=== PATIENT | female | born 1955 | race Caucasian/White ===

== ENCOUNTER → 2017-11-23 08:51 | Outpatient (CLI) | payer OTHER, SELFPAY ==
--- NOTE | 2017-11-23 08:53 | RAD_ITS ---
STUDY: X-RAY - LEFT KNEE REASON FOR EXAM: Female, 62 years old. Pain, decreased range of motion TECHNIQUE: 4 view(s) of the knee. COMPARISON: None. FINDINGS: Normal visualized distal femur. Normal visualized proximal tibia and fibula. Normal proximal tibiofibular articulation. There is moderate degenerative arthrosis of the medial femorotibial compartment with moderate joint space narrowing. Normal lateral femorotibial compartment. There is moderate degenerative arthrosis of the patellofemoral articulation. The soft tissue structures are unremarkable. RAD/Knee 4 or More Views IMPRESSION: Degenerative arthrosis. Electronically Signed: Gamal Madrigal MD at 11:25 EDT , Service support ,
== END ==
PROVIDERS: Family Provider Internal Medicine; PCP Internal Medicine; Visit Provider Physician Assistant
DX: M25.562 Pain in left knee (principal)
CPT/HCPCS: 73564

== ENCOUNTER 2017-12-11 16:00 | Outpatient (RCR) | payer OTHER, SELFPAY ==
--- NOTE | 2017-11-23 10:59 | HP.PTEVAL_ITS ---
Patient's Visit Information LAURA RENE is a 62 year old F referred to Physical Therapy by DESTINY Szymanski with a diagnosis of L knee OA. Date of Evaluation: 11/23/17 Physical Therapist: Avel Argueta PT, - Visit Plan Frequency: 2-3x /Week Duration: 3 Weeks Plan: B LE strengthening, core stab ex's, balance and proprio, bike, and HEP - Subjective Subjective: Pt reports she has had L knee pain for approximately 2 mos. Pt reports the pain has progressively worsened. Pt reports last work, her L knee gave out on her while whe was descending stairs. Pt reports her R knee is sore as well. Pt reports walking fast causes her more pain. Pt notes she just received a cortizone injection a few minutes ago, but no benefit at this time. Pt reports most of her pain is in the posterior aspect of her L knee. Pt reports she has tingling down her L LE from the knee to the mid juan region. No sleep difficulty secondary to pain. Pt had recent xrays which revealed OA. Pt reports she has to negotiate stairs one at a time, and has to hold on to the railings. - Pain L knee oa Pain Intensity (Out of 10): 1 Pain Intensity Range: 6 - Objective Neuro: B LE sensation is WNL to light touch. B achilles reflex= 1/3. Girth at joint line: R knee 39 cm, L knee 41 cm. ROM: R knee 0-120, L knee 0-112. MMT: B knee flex= 4-/5, L knee ext= 3+/5, R knee ext= 5/5. Special testing: Positive apley compression test. all other tests negative - Goals Goal 1:: Decrease L knee pain x 50% to aid with IADL's Goal Time Frame: 2-4 Weeks Goal 2:: Increase L knee strength x 1 grade to aid with stair negotiation Goal Time Frame: 2-4 Weeks Goal 3:: Pt will be able to negotiate a full flight of stairs (10 steps) reciprocally holding onto one hand rail to aid with community mobility Goal Time Frame: 2-4 Weeks Goal 4:: I with HEP Goal Time Frame: 2-4 Weeks - Rehabilitation Potential Physical Therapy Diagnosis: L knee pain, weakness, and limited ROM secondary to degenerative changes in the L knee Rehabilitation Potential: Good - Anticipated Interventions Patient/Client Instruction: Educate patient on: Condition, Plan of Care For the Purpose of:: To improve self management Therapeutic Exercise to Include: Strength training, Endurance training, Balance training, Flexibilty training, Gait and locomotor training, Active ROM, Dynamic Lumbar Stabilization For the Purpose of:: To decrease pain, To increase ROM, To improve muscle performance and motor function Cryotherapy (ice pack, ice massage): Yes For the Purpose of:: To decrease pain Thank you for the opportunity to evaluate your patient. For Medicare and Medicare HMO plans, please review the plan of care and approve it. It will need to be FAXED BACK to us at [phone] for Medicare purposes. Please let me know if there are questions or concerns regarding this plan of care. Physician Signature: Date:
--- NOTE | 2018-01-19 08:21 | HP.PT.NRP ---
HP - Discharge Summary (1) - Patient Information LAURA RENE was seen in my office for initial evaluation on 11/23/17. The following Plan of Care was established for this patient: Initial Frequency: 2-3x /Week Initial Duration: 3 Weeks - Anticipated Interventions Patient/Client Instruction: Educate patient on: Condition, Plan of Care For the Purpose of:: To improve self management Therapeutic Exercise to Include: Strength training, Endurance training, Balance training, Flexibilty training, Gait and locomotor training, Active ROM, Dynamic Lumbar Stabilization For the Purpose of:: To decrease pain, To increase ROM, To improve muscle performance and motor function Cryotherapy (ice pack, ice massage): Yes For the Purpose of:: To decrease pain This patient was last seen in our office . Pertinent comments regarding their Physical therapy will appear below: Pt was treated for 7 PT visits for her L knee pain through the date of 12/11/17. Pt has not returned through todays date, and is therefore discontinued at this time. At this point I will be discontinuing this patient from physical therapy. I would be happy to see this patient again in the future if found appropriate by the physician. Thank you! Avel Argueta, PT,
== END 2017-12-11 19:00 | disposition home or self-care (01) ==
LOC: PT 16:00
PROVIDERS: Family Provider Family Medicine; PCP Family Medicine; Visit Provider Physician Assistant
DX: M17.12 Unilateral primary osteoarthritis, left knee (principal)
CPT/HCPCS: 97110; 97161

== ENCOUNTER → 2018-03-27 10:30 | Outpatient (CLI) | payer OTHER, SELFPAY ==
--- NOTE | 2018-03-27 10:36 | US_ITS ---
PROCEDURES: ULTRASOUND AORTA REASON FOR EXAM: Female, 63 years old. AAA screening TECHNIQUE: Ultrasound evaluation of the aorta was performed with real-time and static luevano-scale imaging. COMPARISON: None. FINDINGS: Calcified aortic plaque is present. Aorta measures: Proximal 2.2 cm. Middle 1.7 cm. Distal 1.6 cm. Aorta measure transversely: Proximal 2.3 cm. Middle 1.9 cm. Distal 1.4 cm. Right iliac artery measures: 1.1 cm. Right iliac artery measure transversely: 1.0 cm. Left iliac artery measures: 1.1 cm. Left iliac artery measure transversely: 1.2 cm. There is no demonstrated aneurysm.. US/Aorta IMPRESSION: No evidence of abdominal aortic aneurysm. Electronically Signed: Joey Perry MD at 23:39 EST Tel , Service support ,
--- NOTE | 2018-03-27 14:05 | CT_ITS ---
HISTORY: SMOKER 26 YRS 1 PPD. WEIGHT 198 TECHNIQUE: Helically acquired images were obtained of the chest. A radiation dose optimization technique was used for this scan. IV Contrast dosage and agent: None. COMPARISON: None FINDINGS: Bilateral hyperinflation. Biapical minor scarring. Right basilar minor scarring or subsegmental atelectasis. No pulmonary nodule or mass. No acute infiltrate. No bronchiectasis or interstitial lung disease. No pleural effusion. Thoracic aorta is atherosclerotic and normal in caliber. No pericardial effusion. CT/Low Dose CT Lung Screening IMPRESSION: 1. No acute disease, pulmonary nodule, or suspicious lesion. 2. Hyperinflation. Right basilar mild scarring or atelectasis. 3. Atherosclerotic calcifications. 4. Suggest continued surveillance with follow-up low-dose CT chest exam in 1 year. Lung RADS 1: Negative Individualized dose optimization techniques were used for this CT. at 0414 Reported and signed by: Armani Roberts MD Electronically Signed: Armani Roberts, at 4:12 EST Tel , Service support ,
--- OUTSIDE RECORDS SUMMARY | 2018-05-09 01:54 | XMS RPT_ITS ---
:1955 Author Organization OH[facility] Care Team Providers Name Role Phone Armani Levine Attending Unavailable Nikko East Referring Unavailable Nikko East Primary Care Unavailable Armani Levine Attending Unavailable Armani Levine Referring Unavailable Nikko East Primary Care Unavailable Armani Levine Attending Unavailable Armani Levine Referring Unavailable Phuc Mccormack Primary Care Unavailable Phuc Mccormack Attending Unavailable Phuc Mccormack Primary Care Unavailable Phuc Mccormack Referring Unavailable PROBLEMS PROBLEMS DATE TYPE CONDITION / CODE ATTENDING STATUS SOURCE 01/19/2018 Unknown M17.12 - Armani Levine Active [facility] osteoarthritis, Repository left knee / M17.12(ICD-10) 11/23/2017 Unknown M25.562 - Pain in Armani Levine Active [facility] left knee / [facility] M25.562(ICD-10) Hospital Repository PROCEDURES PROCEDURES No Procedure Records FoundRESULTS RESULTS LOW DOSE CT LUNG Observed: 03/27/2018 Status: F Source: [place] SCREENING 2:05 PM [facility] REPOSITORY [facility] Imaging Services [address] [place] [address] Lung Screening MR#: [id number] Acct: [id number] Name: LAURA RENE Rep #: [id number] : 1955 F 63 From: Armani Roberts MD PCP: Phuc Mccormack MD Status: REG CLI Study: Low Dose CT Lung Screening Date of Exam: 03/27/18 Exam# [id number] Ordering Dr: Phuc Mccormack MD HISTORY: SMOKER 26 YRS 1 PPD. WEIGHT 198 TECHNIQUE: Helically acquired images were obtained of the chest. A radiation dose optimization technique was used for this scan. IV Contrast dosage and agent: None. COMPARISON: None FINDINGS: Bilateral hyperinflation. Biapical minor scarring. Right basilar minor scarring or subsegmental atelectasis. No pulmonary nodule or mass. No acute infiltrate. No bronchiectasis or interstitial lung disease. No pleural effusion. Thoracic aorta is atherosclerotic and normal in caliber. No pericardial effusion. CT/Low Dose CT Lung Screening IMPRESSION: 1. No acute disease, pulmonary nodule, or suspicious lesion. 2. Hyperinflation. Right basilar mild scarring or atelectasis. 3. Atherosclerotic calcifications. 4. Suggest continued surveillance with follow-up low-dose CT chest exam in 1 year. Lung RADS 1: Negative Individualized dose optimization techniques were used for this CT. at 0414 Reported and signed by: Aramni Roberts MD Electronically Signed: Armani Roberts, at 4:12 EST Tel , Service support , CC: Phuc Mccormack MD In Store Marketing Representative: Signed AORTA Observed: 03/27/2018 Status: F Source: [place] 10:36 AM [facility] REPOSITORY [facility] Imaging Services [address] [place] [address] Aorta MR#: [id number] Acct: [id number] Name: LAURA RENE Rep #: [id number] : 1955 F 63 From: Joey Perry MD PCP: Phuc Mccormack MD Status: REG CLI Study: Aorta Date of Exam: 03/27/18 Exam# [id number] Ordering Dr: Phuc Mccormack MD PROCEDURES: ULTRASOUND AORTA REASON FOR EXAM: Female, 63 years old. AAA screening TECHNIQUE: Ultrasound evaluation of the aorta was performed with real-time and static luevano-scale imaging. COMPARISON: None. FINDINGS: Calcified aortic plaque is present. Aorta measures: Proximal 2.2 cm. Middle 1.7 cm. Distal 1.6 cm. Aorta measure transversely: Proximal 2.3 cm. Middle 1.9 cm. Distal 1.4 cm. Right iliac artery measures: 1.1 cm. Right iliac artery measure transversely: 1.0 cm. Left iliac artery measures: 1.1 cm. Left iliac artery measure transversely: 1.2 cm. There is no demonstrated aneurysm.. US/Aorta IMPRESSION: No evidence of abdominal aortic aneurysm. Electronically Signed: Joey Perry MD at 23:39 EST Tel , Service support , CC: Phuc Mccormack MD In Store Marketing Representative: Signed ORTHOPEDIC VISIT Observed: 11/23/2017 Status: F Source: [place] REPORT 2:11 PM [facility] REPOSITORY [facility] [address] [place] [address] OFFICE VISIT Date of Service: 11/23/17 MR#: [id number] Acct: [id number] Name: LAURA RENE Rep #: [id number] : 1955 Provider: DESTINY Levine Age/Sex: 62/F Location[place] [facility] [place] [place]: Signed Intake Vital Signs11/23/17 Height 5 ft 6 in 11/23/17 Weight: 201 lb 11/23/17 Body Mass Index (BMI) 32.4 Intake Visit Reasons: LEFT KNEE PAIN Is patient in pain?: Yes Pain scale (1-10): 5 Allergies No Known Allergies Allergy (Unverified 11/23/17 08:38) Medications antiarthritic combination no.2 900 mg tablet mg PO 11/23/17 [History Confirmed 11/23/17] cholecalciferol (vitamin D3) 5,000 unit capsule 5,000 unit PO QDAY 11/23/17 [History Confirmed 11/23/17] PFSH Family History Mother Cancer Social History Smoking Status: Former smoker quit date: 05/01/03 pack-years: 28 HPI LEFT KNEE PAIN: Details: LAURA RENE is a 62 year old F here today for bilateral knee pain, left greater than right. She has had left knee pain for about a month or so. She has knee stiffness for awhile. Patient denies any known injury. She complains of soreness over her posterior knee. She has increased pain with ambulating and stairs. Patient has knee instability. She denies any popping or clicking. She denies any swelling. Patient has bruising over her medial knee. Patient has been icing her knee which is helpful. Patient has tried knee braces which have been helpful. Patient takes ibuprofen or aspirin which is helpful. She denies any xrays, MRI, physical therapy or injections. She notes that she has anterior juan numbness at times. ROS Const Reports system reviewed and no additional complaints, except as docu Eyes Reports system reviewed and no additional complaints, except as docu ENT Reports system reviewed and no additional complaints, except as docu Card Reports system reviewed and no additional complaints, except as docu Resp Reports system reviewed and no additional complaints, except as docu GI Reports system reviewed and no additional complaints, except as docu Reports system reviewed and no additional complaints, except as docu Musc Reports joint pain, Reports muscle weakness Skin/Breast Reports system reviewed and no additional complaints, except as docu Neuro Yes system reviewed and no additional complaints, except as docu Psych Reports system reviewed and no additional complaints, except as docu Endo Reports system reviewed and no additional complaints, except as docu Ortho Exam Left Knee Knee ROM: Yes ROM-Extension -20 to 0, Yes ROM-Flexion 0-140 (120) Examination: Yes med jt line tenderness, No TTP inf pole patella, No Lat jt line tenderness, Yes Pain with flexion, Yes Johnson's Test Quad Atrophy: No Stability: NML: Anterior Drawer Apprehension with Lateral Translation: No Patellar Tilt Normal: No Patella Grind: Yes Office Procedures Ortho Injections Injections Yes Knee Left Details: Obtained consent for injection. Under sterile conditions, injected the patients left knee with a 10cc cocktail of 8cc bupivacaine and 2cc kenalog . The patient tolerated the injection well without any noted complication. Patient should call our office if redness develops, pain worsens or if they have any concerns. Office Meds Kenalog Performing Provider: DESTINY Szymanski Administered by: DESTINY Szymanski on 11/23/17 09:54 Dose Route Admin Location Lot Number Expiration DateNDC Log Scaler 2 mg Intra-Articularleft knee [id number] 08/29/18 [id number] [place] Assessment AND Plan Problems 1. Arthritis of knee, right M17.11 2. Tear of medial meniscus of left knee, current, unspecified tear type, initial encounter S83.978A Plan Obtained Xrays of patient's left knee. Personally reviewed Xrays. There is no obvious fracture, dislocation, or lucency noted. See chart for further details. Patient does have some medial compartment narrowing with some joint line sclerosis. She likely has a degenerative meniscus tear secondary to the arthritis. She does have some patellofemoral grinding of the knee with some narrowing on X-rays. We discussed options today and patient would like to go ahead with intra-articular injection of the knee and we are then going to begin some physical therapy to strengthen her quads. Will have her come back in 2-3 months and as needed pending results / relief of the injection and PT. Orders Orders: Medications Discontinued: Kenalog (triamcinolone acetonide) 2 mg (0.2 mL) Intra-Articular ONCE NM17.12 Gina Rojo Discontinued Reason: Office MedicaS tion has been Documented as given Plan Detail Follow Up 3 Months Coding Level of Care Code Off vis,new,level 3 Diagnoses Arthritis of knee, right M17.11 Tear of medial meniscus of left knee, current, unspecified tear type, initial encounter S83.926A Tear current or old: current Encounter type: initial encounter Meniscus of knee: medial Meniscus tear of knee type: unspecified type Additional Codes galley [email or web address] ([id number]) 11/23/17 1411 <Electronically signed by Armani DIXON> Date Armani Murphy Signature: Date (if applicable) CC: INITAL EVALUATION (1) Observed: 11/23/2017 Status: F Source: [facility] - PT 10:59 AM [facility] REPOSITORY [facility] [address] [place] [address] Fax REHABILITATION SERVICES INITIAL EVALUATION MR#: [id number] Acct: [id number] Name: LAURA RENE Rep #: [id number] : 1955 62 From: Avel Argueta PT, ATC Referring Dr.: DESTINY Levine Status: REG RCR Insurance: [employer] SELF PAY INSURANCE Patient's Visit Information LAURA RENE is a 62 year old F referred to Physical Therapy by DESTINY Szymanski with a diagnosis of L knee OA. Date of Evaluation: 11/23/17 Physical Therapist: Avel Argueta PT, - Visit Plan Frequency: 2-3x /Week Duration: 3 Weeks Plan: B LE strengthening, core stab ex's, balance and proprio, bike, and HEP - Subjective Subjective: Pt reports she has had L knee pain for approximately 2 mos. Pt reports the pain has progressively worsened. Pt reports last work, her L knee gave out on her while whe was descending stairs. Pt reports her R knee is sore as well. Pt reports walking fast causes her more pain. Pt notes she just received a cortizone injection a few minutes ago, but no benefit at this time. Pt reports most of her pain is in the posterior aspect of her L knee. Pt reports she has tingling down her L LE from the knee to the mid juan region. No sleep difficulty secondary to pain. Pt had recent xrays which revealed OA. Pt reports she has to negotiate stairs one at a time, and has to hold on to the railings. - Pain L knee oa Pain Intensity (Out of 10): 1 Pain Intensity Range: 6 - Objective Neuro: B LE sensation is WNL to light touch. B achilles reflex= 1/3. Girth at joint line: R knee 39 cm, L knee 41 cm. ROM: R knee 0-120, L knee 0-112. MMT: B knee flex= 4-/5, L knee ext= 3+/5, R knee ext= 5/5. Special testing: Positive apley compression test. all other tests negative - Goals Goal 1:: Decrease L knee pain x 50% to aid with IADL's Goal Time Frame: 2-4 Weeks Goal 2:: Increase L knee strength x 1 grade to aid with stair negotiation Goal Time Frame: 2-4 Weeks Goal 3:: Pt will be able to negotiate a full flight of stairs (10 steps) reciprocally holding onto one hand rail to aid with community mobility Goal Time Frame: 2-4 Weeks Goal 4:: I with HEP Goal Time Frame: 2-4 Weeks - Rehabilitation Potential Physical Therapy Diagnosis: L knee pain, weakness, and limited ROM secondary to degenerative changes in the L knee Rehabilitation Potential: Good - Anticipated Interventions Patient/Client Instruction: Educate patient on: Condition, Plan of Care For the Purpose of:: To improve self management Therapeutic Exercise to Include: Strength training, Endurance training, Balance training, Flexibilty training, Gait and locomotor training, Active ROM, Dynamic Lumbar Stabilization For the Purpose of:: To decrease pain, To increase ROM, To improve muscle performance and motor function Cryotherapy (ice pack, ice massage): Yes For the Purpose of:: To decrease pain Thank you for the opportunity to evaluate your patient. For Medicare and Medicare HMO plans, please review the plan of care and approve it. It will need to be FAXED BACK to us at [phone] for Medicare purposes. Please let me know if there are questions or concerns regarding this plan of care. Physician Signature: Date: <Electronically signed by Avel Argueta PT, ATC> 11/23/17 1059 CC: DESTINY Levine; Phuc Mccormack MD [facility] Signed For Medicare only, by signing this I certify the plan of care. Physicians Signature Date KNEE 4 OR MORE Observed: 11/23/2017 Status: F Source: [facility] VIEWS 8:54 AM [facility] REPOSITORY [facility] Imaging Services [address] [place] [address] Knee 4 or More Views MR#: [id number] Acct: [id number] Name: LAURA RENE Rep #: [id number] : 1955 F 62 From: Michael Madrigal MD PCP: Nikko East MD Status: REG CLI Study: Knee 4 or More Views Date of Exam: 11/23/17 Exam# [id number] Ordering Dr: Armani Levine STUDY: X-RAY - LEFT KNEE REASON FOR EXAM: Female, 62 years old. Pain, decreased range of motion TECHNIQUE: 4 view(s) of the knee. COMPARISON: None. FINDINGS: Normal visualized distal femur. Normal visualized proximal tibia and fibula. Normal proximal tibiofibular articulation. There is moderate degenerative arthrosis of the medial femorotibial compartment with moderate joint space narrowing. Normal lateral femorotibial compartment. There is moderate degenerative arthrosis of the patellofemoral articulation. The soft tissue structures are unremarkable. RAD/Knee 4 or More Views IMPRESSION: Degenerative arthrosis. Electronically Signed: Gamal Madrigal MD at 11:25 EDT , Service support , CC: DESTINY Levine; Nikko East MD In Store Marketing Representative: Signed ALLERGIES ALLERGIES DATE TYPE / CODE NAME / CODE REACTION SEVERITY SOURCE 11/23/2017 Drug No Known Unknown [facility] Allergy/4160 Allergies/F00 Hospital 87273(SNOMED [id number](RXNOR Repository CT) M) ENCOUNTERS ENCOUNTERS ADMIT/DISCHARGE ACCOUNT ADMITTING ENCOUNTER LOCATION SOURCE NUMBER CLASS 03/27/2018 [id number] [facility] [place] [facility] ing:US Repository 12/11/2017/ [id number] Ambulatory [place] [facility] ing:PT Repository 11/23/2017 [id number] Ambulatory [place] [facility] ing:HPRAD Repository 11/23/2017/ [id number] Ambulatory BMSBuilding:B [place] [facility] 4 MSJAG [facility] Repository PAYERS PAYERS ENCOUNTER GUARANTOR PAYER SUBSCRIBER SOURCE 03/27/2018 LAURA L Primary LAURA [place] [id number] HEYL Insurance:MEDICAL ZEMROCKDOB: [facility] [place] [id number] [address]Fwb: ([phone]) Number: Repository [phone] () [id number] Date:2018-03-21[address], [place] [address]IX: 03/27/2018 Secondary NOT GIVENUNK [place] Insurance:SELF PAY [facility] Number: Effective Repository Date:2018-03-21 12/11/2017 Laura L Primary LAURA [place] [id number] [place] Insurance:AETNAPolicy ZEMROCKDOB: [place], [place] Number: [id number] [id number]: (114) [id number] Repository [phone] () Date:5829-74-70JY [address] [place] [address]UF: 12/11/2017 Secondary NOT GIVENUNK [place] Insurance:SELF PAY [facility] Number: Effective Repository Date:2017-11-23 11/23/2017 Laura Fuller Primary LAURA [address] [place] Insurance:AETNAPolicy ZEMROCKDOB[facility] [place] Number: [id number] [address]Rrp: 330 [id number] Repository [phone] () Date:9625-05-98YN [address] [address]RC: 11/23/2017 Secondary NOT GIVENUNK [place] Insurance:SELF PAY [facility] Number: Effective Repository Date:2017-11-23 11/23/2017 Laura Fuller Primary LAURA [address] [place] Insurance:AETNAPolicy ZEMROCKDOB: [facility] [place], [place] Number: [id number] Hospital [id number]: 330 [id number] Repository [phone] () Date:9931-58-68[address] [address]MC: 11/23/2017 Secondary NOT GIVENUNK [place] Insurance:SELF PAY [facility] Number: Effective Repository Date:2017-11-23
== END ==
PROVIDERS: Family Provider Family Medicine; PCP Family Medicine; Referring Provider Family Medicine; Visit Provider Family Medicine
DX: Z86.79 Personal history of other diseases of the circulatory system (principal); Z87.891 Personal history of nicotine dependence
CPT/HCPCS: 76775; G0297

== ENCOUNTER → 2020-01-13 13:08 | Outpatient (CLI) | payer MEDICARE, SELFPAY ==
[2017-11-23 08:38] VITALS: BMI 32.4
--- NOTE | 2020-01-13 13:11 | CT_ITS ---
STUDY: CT LEFT LOWER EXTREMITY REASON FOR EXAM: Varus deformity, surgical planning. TECHNIQUE: Transaxial CT imaging of the knee was performed. Coronal and sagittal images were reformatted. Individualized dose optimization techniques were used for this CT. COMPARISON: Radiographs 11/23/2017. FINDINGS: Knee: Normal medial femoral condyle and medial tibial plateau. There are small marginal osteophytes, mild subchondral eburnation and joint space narrowing of the medial femorotibial compartment (coronal reconstructions 34-36). Normal lateral femoral condyle and lateral tibial plateau. There are small marginal osteophytes with preservation preservation of the articular joint space of the lateral knee compartment. There are marginal osteophytes of the patellofemoral articulation with preservation of articular joint space. Normal proximal tibiofibular articulation. There is no joint effusion. The quadriceps tendon is grossly normal. The patellar tendon is grossly normal. Normal Hoffa''s fat pad. There is an intra-articular body in the suprapatellar recess (sagittal reconstruction 42). There is an enthesophyte at the superior pole of the patella. Hip: The hip joint is well-preserved. Unremarkable acetabulum and femoral head. Ankle: Normal tibiotalar, posterior subtalar and talonavicular articulations. There is a posterior calcaneal enthesophyte (sagittal reconstruction 24). There is an os trigonum. CT/Extremity Lower without Contra IMPRESSION: Arthrosis of the medial femorotibial compartment. Intra-articular body in the left knee. Electronically Signed: Casey Jack MD at 14:32 EDT Tel , Service support ,
== END ==
PROVIDERS: PCP Family Medicine; Referring Provider Specialist; Visit Provider Specialist
DX: M21.161 Varus deformity, not elsewhere classified, right knee (principal); M21.162 Varus deformity, not elsewhere classified, left knee
CPT/HCPCS: 73700

== ENCOUNTER → 2020-02-14 12:37 | Outpatient (CLI) | payer MEDICARE, SELFPAY ==
[2017-11-23 08:38] VITALS: BMI 32.4
--- NOTE | 2020-02-14 12:44 | CT_ITS ---
STUDY: CT SCAN LOWER EXTREMITY RIGHT REASON FOR EXAM: Female, 64 years old. Varus deformity, right knee Makoplasty surgery planning. RADIATION DOSAGE (If Supplied By Facility): CTDIvol = ( 23.12 ) mGy, DLP = ( 1398.56 ) mGycm. Individualized dose optimization techniques were used for this CT.? TECHNIQUE: Multiple axial tomographic images of the right lower extremity were obtained without intravenous contrast administration. Coronal and sagittal reconstruction was obtained as well. COMPARISON: None. FINDINGS: Marked degree of joint space narrowing involving the medial compartment of the knee joint with degenerative spurring along the distal medial femoral condyle. CT/Extremity Lower without Contra IMPRESSION: Marked degree of joint space narrowing of the medial compartment of the knee joint with degenerative spurring involving the right knee joint. Electronically Signed: Corby Landry, at 15:41 EDT , Service support ,
== END ==
PROVIDERS: PCP Family Medicine; Referring Provider Specialist; Visit Provider Specialist
DX: M21.161 Varus deformity, not elsewhere classified, right knee (principal)
CPT/HCPCS: 73700

== ENCOUNTER → 2020-03-04 11:13 | Outpatient (CLI) | payer MEDICARE, SELFPAY ==
[2017-11-23 08:38] VITALS: BMI 32.4
[2020-03-04 11:56] LABS: Absolute Lymphocyte Count 1.96 X10^3/uL (0.83-4.51); Absolute Neutrophil Count 4.8 X10^3/uL (2.0-7.7); Basophil# 0.07 X10^3/uL; Basophil% 0.9 % (0-1); Eosinophil# 0.18 X10^3/uL; Eosinophils% 2.4 % (0-5); Hematocrit 45.1 % (37-47); Hemoglobin 14.4 g/dL (12.0-15.0); Lymphocyte # 1.96 X10^3/ul (4.0); Lymphocyte % 25.7 % (19-41); Mean Corp Hgb Conc 31.9 g/dL (32-36); Mean Corpuscular Hgb 29.5 pg (27.0-32.0); Mean Corpuscular Volume 92.4 fL (81-99); Mean Platelet Vol. 12.1 fl (6.2-12.0); Monocyte# 0.63 X10^3/uL; Monocyte% 8.3 % (0-10); NRBC Flagged by Analyzer 0 % (0-5); Neutrophil # 4.76 X10^3/uL (2.7-7.7); Neutrophil % 62.4 % (47-70); Platelet Count 398 K/mm3 (150-450); RBC Distribution Width SD 47.9 fl (35.1-43.9); Red Blood Count 4.88 M/mm3 (4.2-5.4); White Blood Count 7.6 K/mm3 (4.4-11.0)
[2020-03-04 12:44] LABS: Anion Gap 7 (5-15); BUN 15 mg/dL (7-18); BUN/Creat Ratio 17.7 RATIO (10-20); Calcium,Total 9.5 mg/dL (8.5-10.1); Chloride 106 mmol/L (98-107); Creatinine, Serum 0.85 mg/dL (0.55-1.02); EST Glomerular Filtration Rate 71 mL/min (>60); Est Glom Filt Rate - Afr Amer 86 mL/min (>60); Glucose 82 mg/dL (74-106); Sodium Level 140 mmol/L (136-145)
== END ==
PROVIDERS: PCP Family Medicine; Visit Provider Physician Assistant Surgical
DX: Z01.818 Encounter for other preprocedural examination (principal)
CPT/HCPCS: 36415; 80048; 85025

== ENCOUNTER → 2023-05-25 | Outpatient (CLI) | payer MEDICARE, SELFPAY ==
[2023-05-25 13:39] LABS: Cholesterol 190 mg/dL (200); Creatinine, Serum 0.72 mg/dL (0.55-1.02); EST Glomerular Filtration Rate 85 mL/min (>60); Est Glom Filt Rate - Afr Amer 103 mL/min (>60); High Density Lipoprotein 89 mg/dL; Thyroid Stim Hormone (TSH) 1.47 uIU/mL (0.358-3.74); Triglycerides 82 mg/dL; Very Low Density Lipoprotein 16 mg/dL (5-40)
== END | disposition home or self-care (01) ==
LOC: MFPLAB 09:39
PROVIDERS: PCP Family Medicine; Visit Provider Family Medicine
DX: I10 Essential (primary) hypertension (principal)
CPT/HCPCS: 36415; 80061; 82565; 84443

== ENCOUNTER → 2023-06-22 | Outpatient (CLI) | payer MEDICARE, SELFPAY ==
--- NOTE | 2023-06-22 14:21 | BI_ITS ---
MAMMOGRAPHY - BILATERAL SCREENING REASON FOR EXAM: Female, 68 years old. Routine annual screening examination. PERTINENT HISTORY: Non-contributory. TECHNIQUE: Digital bilateral breast afshin (3D mammographic acquisition) in the CC and MLO projections. 2-D mediolateral oblique (MLO) and craniocaudad (CC) views of both breasts were obtained. CAD: Full Field Digital Mammography with Computer Added Detection was performed. COMPARISON: Comparison is made with prior outside examination dated March 17, 2016. FINDINGS: Breast Composition: There are scattered areas of fibroglandular density. There are 2, 5 mm well-defined nodules in the retroareolar region of the left breast. Correlation with ultrasound is recommended. Stable asymmetry of breast tissue where more breast tissue is seen in the retroareolar region of the left breast as compared to the right side. No other significant abnormalities are identified. BI/SCRN MAMM (CAD)W/AFSHIN BILAT IMPRESSION: There are 2, 5 mm well-defined nodules in the retroareolar region of the left breast as described. Correlation with ultrasound is recommended. ASSESSMENT CATEGORY: BIRADS Category 0: Incomplete. Need additional imaging evaluation. A letter regarding these results will be sent to the patient by the facility within 30 days. Approximately 10% of breast cancers are not detected by mammography. A normal mammogram should not delay biopsy of a clinically suspicious abnormality. [id number] Electronically Signed: Corby Landry MD at 15:36 EST ,
--- NOTE | 2023-06-22 14:35 | BD_ITS ---
STUDY: DUAL ENERGY X-RAY ABSORPTIOMETRY / DXA REASON FOR EXAM: Female, 68 years old. V76.12ScreeningBONE DENSITY REASON FOR EXAM TECHNIQUE: Bone Mineral Density (BMD) measurements of lumbar spine and bilateral hips were obtained. COMPARISON: None. FINDINGS: Lumbar Spine (L1-L4): g/cm2 (0.877) / T-score (-1.5) / Z-score (0.5) Findings are suggestive of osteopenia with a low fracture risk. Left Femur Total: g/cm2 (0.818) / T-score (-1.0) / Z-score (0.4) Left Femoral Neck: g/cm2 (0.714) / T-score (-1.2) / Z-score (0.5) Right Femur Total: g/cm2 (0.839) / T-score (-0.8) / Z-score (0.6) Right Femoral Neck: g/cm2 (0.688) / T-score (-1.4) / Z-score (0.3) BD/Dexa Bone Density Study IMPRESSION: The patient is considered osteopenic as outlined below according to World [place] Organization (WHO) criteria with a low fracture risk. Reference Information: The T-score is the number of standard deviations above or below the standard which is normal for young adults at their peak bone mineral density. The World Health Organization (WHO) interprets the T-scores as follows: Above -1 Normal bone density Between -1 and -2.5 Osteopenia Equal to / or below -2.5 Osteoporosis As a practical clinical guideline, osteopenia may be graded as follows: Mild -1 through -1.5 Moderate -1.6 through -2.0 Severe -2.1 through -2.4 The Z-score is the number of standard deviations above or below age-matched controls. A Z-score of less than -1.5 would be considered abnormal. References: 1. NIH Osteoporosis and Related Bone Diseases www osteo.org 2. International Society for Clinical Densitometry www iscd.org 3. National Osteoporosis Foundation www nof.org Electronically Signed: Corby Landry MD at 9:24 EST ,
== END | disposition home or self-care (01) ==
PROVIDERS: PCP Family Medicine; Referring Provider Family Medicine; Visit Provider Family Medicine
DX: Z12.31 Encounter for screening mammogram for malignant neoplasm of breast (principal); N95.1 Menopausal and female climacteric states
CPT/HCPCS: 77063; 77067; 77080

== ENCOUNTER → 2023-06-28 | Outpatient (CLI) | payer MEDICARE, SELFPAY ==
--- NOTE | 2023-06-28 10:54 | US_ITS ---
STUDY: ULTRASOUND BREAST - LEFT REASON FOR EXAM: Female, 68 years old. Breast nodule. TECHNIQUE: Axial and longitudinal images of the LEFT breast were performed with a high resolution ultrasound transducer. # OF IMAGES: 17 COMPARISON: Comparison is made with prior study of June 22, 2023. FINDINGS: LEFT Breast: The retroareolar region of the left breast was examined with ultrasound. Prominent retroareolar ducts. No nodule is seen. US/Breast Limited Unilateral IMPRESSION: Prominent retroareolar ducts. ASSESSMENT CATEGORY: BIRADS Category 2: Benign. A letter regarding these results will be sent to the patient by the facility within 30 days. Electronically Signed: Corby Landry MD at 15:49 EST ,
== END | disposition home or self-care (01) ==
PROVIDERS: PCP Family Medicine; Referring Provider Family Medicine; Visit Provider Family Medicine
DX: R92.8 Other abnormal and inconclusive findings on diagnostic imaging of breast (principal)
CPT/HCPCS: 76642

== ENCOUNTER → 2023-11-13 | Outpatient (CLI) | payer MEDICARE, SELFPAY ==
[2023-11-13 12:10] LABS: Absolute Lymphocyte Count 2.48 X10^3/uL (0.83-4.51); Absolute Neutrophil Count 4.8 X10^3/uL (2.0-7.7); Basophil# 0.11 X10^3/uL; Basophil% 1.3 % (0-1); Eosinophils% 2.4 % (0-5); Hematocrit 48.2 % (37-47); Hemoglobin 15.7 g/dL (12.0-15.0); Lymphocyte # 2.48 X10^3/ul (0.83-4.51); Lymphocyte % 29.7 % (19-41); Mean Corp Hgb Conc 32.6 g/dL (32-36); Mean Corpuscular Hgb 29.4 pg (27.0-32.0); Mean Corpuscular Volume 90.3 fL (81-99); Monocyte# 0.68 X10^3/uL; Monocyte% 8.2 % (0-10); NRBC Flagged by Analyzer 0 % (0-5); Neutrophil # 4.84 X10^3/uL (2.7-7.7); Platelet Count 351 K/mm3 (150-450); RBC Distribution Width CV 14.1 % (11.6-14.6); RBC Distribution Width SD 46.5 fl (35.1-43.9); Red Blood Count 5.34 M/mm3 (4.2-5.4); White Blood Count 8.3 K/mm3 (4.4-11.0)
[2023-11-13 14:18] LABS: Anion Gap 8 (5-15); BUN 17 mg/dL (7-18); Calcium,Total 9.4 mg/dL (8.5-10.1); Chloride 108 mmol/L (98-107); Creatinine, Serum 0.74 mg/dL (0.55-1.02); EST Glomerular Filtration Rate 83 mL/min (>60); Est Glom Filt Rate - Afr Amer 100 mL/min (>60); Glucose 91 mg/dL (74-106); Potassium 4.2 mmol/L (3.5-5.1); Sodium Level 138 mmol/L (136-145)
== END | disposition home or self-care (01) ==
LOC: MFPLAB 09:54
PROVIDERS: PCP Family Medicine; Visit Provider Family Medicine
DX: I10 Essential (primary) hypertension (principal); R19.5 Other fecal abnormalities
CPT/HCPCS: 36415; 80048; 85025

== ENCOUNTER 2024-01-15 06:09 | Day surgery (SDC) | payer MEDICARE, SELFPAY ==
[2024-01-15] VITALS (8 sets, daily range): BP systolic 112–159; BP diastolic 82–98; PULSE 62–85; RESP 16; TEMP 36.3–36.6; O2SAT 93–99; BMI 34.1
--- NOTE | 2024-01-15 | COLBX_PTH ---
PATIENT: LAURA RENE LOC: EN U#:[id number] AGE/SX: 68/F ROOM: RE01/15/[address]: Dr. Elizabeth Farias MD : 1955 BED: DIS: 01/15/2024 SPEC #: [id number] RECD: 01/15/24 13:30 STATUS: ALTAF REAbdiel #: [id number] JOSUE: 01/15/24 00:[address]: Elizabeth Farias DEPT: SURGICAL PATHOLOGY RECD BY: Keyon Moore ENTERED: 01/16/24 09:40 SP TYPE: COLON BX OTHR DR: Dr. Phuc Mccormack MD Tissues: Rectum, NOS Procedures: Surgery Specimen Level IV HEADER OPERATION: Colonoscopy with biopsy PRE-OP DIAGNOSIS: Positive fecal immunochemical test TISSUE SUBMITTED: Rectum polyp x2 biopsy MICROSCOPIC DIAGNOSIS Rectum polyp x2, biopsy: Fragments of hyperplastic polyp. SJ.mr 01/17/2024 MICROSCOPIC DESCRIPTION Slides are reviewed. GROSS DESCRIPTION Received in fixative is one container labeled with the patient's name and designated Rectum polyp. The specimen consists of multiple irregular fragments of light phelps soft tissue that in aggregate measure 0.7 x 0.3 x 0.1 cm. The specimen is totally submitted in one cassette. 01/16/2024 TC:1 CPT:00571
[2024-01-15] MEDS: Lactated Ringers 1,000 ML 15 ML IV (06:25)
--- NOTE | 2024-01-15 06:52 | PRE.ANES_ITS ---
ASA Classification* ASA Classification ASA Classification: 2 Assessment & Plan Anesthesia* Anesthesia Assessment Anesthesia Assessment: Discussed sedation and/or anesthesia options, risks, benefits, and alternatives with patient/parents/legal guardian/POA. Questions invited. The patient/parents/legal guardian/POA seems to understand and agrees to proceed with anesthesia plan. Reviewed the physical assessment, medical history, allergy history and patient home medications list prior to surgery/procedure/anesthetic and documented any changes. Performed airway and anesthesia risk assessments. Anesthesia Type Anesthesia Type: MAC History Source History Obtained from:: Patient and Chart Anesthesia Focused Assessment* Temperature: 97.3 F Pulse Rate: 85 Blood Pressure: 159/98 Respiratory Rate: 16 Pulse Ox: 97 Oxygen Delivery Method: Room Air Airway Assessment Mouth opens: >3 cm Mallampati Score: III Teeth Condition: Partial (Patient has a permanent bridge at #8, 9 and 10) Neck Range of motion (ROM): Full ROM Focused Labs Anesthesia Preop lab: CBC WBC 8.3 K/mm3 (4.4-11.0) 11/13/23 09:55 RBC 5.34 M/mm3 (4.2-5.4) 11/13/23 09:55 Hgb 15.7 g/dL (12.0-15.0) H 11/13/23 09:55 Hct 48.2 % (37-47) H 11/13/23 09:55 Plt Count 351 K/mm3 (150-450) 11/13/23 09:55 CHEMISTRY Potassium 4.2 mmol/L (3.5-5.1) 11/13/23 09:55 Sodium 138 mmol/L (136-145) 11/13/23 09:55 BUN 17 mg/dL (7-18) 11/13/23 09:55 Creatinine 0.74 mg/dL (0.55-1.02) 11/13/23 09:55 Glucose 91 mg/dL (74-106) 11/13/23 09:55 TSH 1.47 uIU/mL (0.358-3.74) 05/25/23 09:40 COAG Pre-Assessment Diagnosis/Proposed Procedure Planned Operative Procedure(s): Colonoscopy Anesthesia History 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 When Was Last Pacemaker Check QUESTION #4 FULL TEXT: You/Your Family Experience fever (hyperthermia) with Anesthesia Last Oral Intake Last Oral intake: Last Oral Intake NPO since 20:30 01/15/24 06:22 Meds taken in AM with sips of water? Meds patient instructed to take am of surgery PONV PONV - physical therapist center manager: PONV - physical therapist center manager Female Yes 01/11/24 12:53 HX of Motion Sickness No 01/11/24 12:53 HX of N/V After Surgery No 01/11/24 12:53 Non-Smoker Yes 01/11/24 12:53 Duration of Surgery greater No 01/11/24 12:53 than 60 minutes Number of Risk Factors 2 01/11/24 12:53 PONV Score Moderate Risk 01/11/24 12:53 Height & Weight Height & Weight: Anesthesia: Height & Weight Height 5 ft 5 in 01/15/24 06:22 Weight: 93.1 kg 01/15/24 06:22 Body Mass Index (BMI) 34.1 01/15/24 06:22 Respiratory Assessment Respiratory Assessment - physical therapist center manager: Respiratory Tract Infection Hx - physical therapist center manager Hx Respiratory Tract Infection No 01/11/24 12:53 STOP Sleep Apnea STOP Sleep Apnea - physical therapist center manager: STOP Sleep Apnea - physical therapist center manager Hx Hypertension No 01/11/24 12:53 Hx Sleep Apnea No 01/11/24 12:53 CPAP BIPAP Do you snore loudly (louder Yes 01/11/24 12:53 than talking or can be heard Do you often feel tired/ No 01/11/24 12:53 fatigued/ sleepy during daytime? Has anyone observed you stop No 01/11/24 12:53 breathing during sleep? STOP Results Negative 01/11/24 12:53 QUESTION #5 FULL TEXT : Do you snore loudly (louder than talking or can be heard through closed doors)? Tobacco Use History Tobacco Use History - physical therapist center manager: Tobacco Use History - physical therapist center manager Tobacco Use Smoking Status Former smoker 01/11/24 12:53 Hx Tobacco Use No 01/11/24 12:53 Years Smoking Packs Smoked per Day Smoking Cessation Date was No - quit smoking greater 01/11/24 12:53 within the last 15 years than 15 years ago Hx Smoking Cessation Date Hx Smoking Cessation Counseling Hematologic Medial History Hematologic Hx - physical therapist center manager: Hematologic Medical Hx - emergency medicine physician assistant Hx of Blood Transfusion No 01/11/24 12:53 Hx of Transfusion in last 3 No 01/11/24 12:53 Months Date of Last Transfusion (if within last 3 months) Ever experience any problems No 01/11/24 12:53 with transfusion(s)? Specify any problems Hx of Preganancy in last 3 No 01/11/24 12:53 Months Nurse Filling Out Transfusion VCHRISTIN 01/11/24 12:53 & Questions: Date: 01/11/24 01/11/24 12:53 Time: 12:55 01/11/24 12:53 Patient unable to answer at this time (ie. confused, unrespo /Reproduction History /Reproductive History - physical therapist center manager: /Reproductive Hx- physical therapist center manager Hx Now Gestational Age (in weeks): EDC: Hx Hx Para Hx Section SAB Active Medications Active Medications: Current Medications Generic Name Dose Route Start Last Admin Trade Name Freq PRN Reason Stop Dose Admin Lactated Ringer's 1,000 mls @ 15 mls/hr 01/15/24 06:30 01/15/24 06:25 IV 15 mls/hr .Q48H BRUNO Administration PFSH Medical History Wears glasses Post-menopausal Alcohol use Arthritis Former smoker Home Medications ?Medication ?Instructions ?Recorded ?Last Taken ?Type tobramycin 0.3 % eye drops 1 drp ophthalmic (eye) BID PRN PRN 01/11/24 Unknown History RED, ITCHING Allergy/AdvReac Type Severity Reaction Status Date / Time No Known Allergies Allergy Verified 01/15/24 06:21 Family History Mother Cancer Father Cancer Grandmother Diabetes Heart disease Surgical History H/O artificial lens replacement History of knee replacement Social History Smoking Status: Former smoker quit date: 05/01/03 pack-years: 28 Review of Systems (Anesthesia) ROS Narrative System reviewed and no additional complaints, except as documented.
--- NOTE | 2024-01-15 07:12 | HP.PCM_ITS ---
HPI - General General Date of Service: 01/15/24 HPI Narrative LAURA RENE, is a 68 F who presents for colonoscopy due to positive fit test. Patient last colonoscopy 2003 negative per patient. Patient's previous Cologuard's were also negative. Patient denies any changes since office visit. office appt 12/06/23 HPI HPI: 68-year-old female presents due to positive fit test for colonoscopy. Patient was last colonoscopy was in [address] Ray negative per patient. Patient states she also has done a couple Cologuard's which have been negative previously. Patient denies any blood per rectum or hemorrhoids. Patient has bowel movements daily, denies any abdominal pain/nausea/vomiting/reflux. Patient's maternal grand mother was diagnosed with colon cancer at age 84. PFSH Medical History Wears glasses Post-menopausal Alcohol use Arthritis Former smoker Home Medications ?Medication ?Instructions ?Recorded ?Last Taken ?Type tobramycin 0.3 % eye drops 1 drp ophthalmic (eye) BID PRN PRN 01/11/24 Unknown History RED, ITCHING Allergy/AdvReac Type Severity Reaction Status Date / Time No Known Allergies Allergy Verified 01/15/24 06:21 Family History Mother Cancer Father Cancer Grandmother Diabetes Heart disease Surgical History H/O artificial lens replacement History of knee replacement Social History Smoking Status: Former smoker quit date: 05/01/03 pack-years: 28 Past Medical/Surgical History Planned Operation Planned Operative Procedure(s): Colonoscopy Previous Hospitalizations/Surgeries HX Hospitalizations: No Any Problems With Anesthesia: No You/Your Family Experience Fever (Hyperthermia) With Anes: No Cholinesterase deficiency: No Cardiovascular Hx of Irregular Heartbeat and/or Afib: No Hx Heart Attack: No Hx Congestive Heart Failure: No Hx Hypertension: No Hx Pacemaker: No Respiratory Hx Chronic Obstructive Pulmonary Disease (COPD): No Hx Asthma: No Hx Emphysema: No Hx Sleep Apnea: No Hx Respiratory Tract Infection/Cold (presently): No Do You Snore Loudly (louder than talking or can be heard): Yes Do You Often Feel Tired/ Fatigued/ Sleepy Dring Daytime?: No Has Anyone Observed You Stop Breathing During Sleep?: No Result (for STOP score): Negative Smoking Status: Former smoker Gastrointestinal Hx Ulcer: No Neurological Hx Seizures: No Hx Headaches: No Does patient have nerve stimulator: No Miscellaneous Recent Exposure to Contagious Disease: No Allergies No Known Allergies Allergy (Verified 01/15/24 06:21) Discharge Is Pt Admitted From a Correction, or a Custodial: No After D/C, Where Do you Plan to Go: Return Home Vital Signs Vital Signs Vital Signs: 01/15/24 06:22 01/15/24 06:22 01/15/24 06:59 Temperature 97.3 F L 97.3 F L Temperature Source Temporal Pulse Rate 85 85 Respiratory Rate 16 16 Respiratory Pattern Normal Blood Pressure 159/98 H 159/98 H Blood Pressure Mean 118 Blood Pressure Source Monitor Blood Pressure Position Semi-Fowlers Blood Pressure Location Right Arm Pulse Ox 97 97 Oxygen Delivery Method Room Air Room Air Weight Weight: 205 lb 4.006 oz Body Mass Index (BMI) 34.1 Physical Exam Const alert, oriented x3 and no apparent distress HEENT normocephalic and head/scalp atraumatic Resp normal respiratory effort Cardio regular rate GI soft to palpation and non-tender; Negative for non-distended Palpation: Negative for guarding Extremity no clubbing, cyanosis or edema Skin no rashes or lesions noted Neuro CN's II-XII intact bilaterally Psych mental status grossly normal Assessment & Plan Assessment/Plan (1) Positive FIT (fecal immunochemical test): Surgery Risks - Colonoscopy I discussed with the patient the risks of the procedure: Yes Risks Include but are not Limited To: Risks include but are not limited to: Bleeding, perforation requiring further surgery, inability to complete colonoscopy requiring barium enema.
--- NOTE | 2024-01-15 08:33 | OP.COLON_ITS ---
Patient Name: Kaye Dimas Procedure Date: 01/15/2024 7:39 AM Date of : 1955 Age: 68 Procedure: Colonoscopy Indications: Positive fecal immunochemical test Providers: Elizabeth Farias MD Medicines: Monitored Anesthesia Care Patient Profile: This is a 68 year old female. Last Colonoscopy: more than 10 years ago. Complications: No immediate complications. Procedure: Pre-Anesthesia Assessment: - Prior to the procedure, a History and Physical was performed, and patient medications and allergies were reviewed. The patient's tolerance of previous anesthesia was also reviewed. The risks and benefits of the procedure and the sedation options and risks were discussed with the patient. All questions were answered, and informed consent was obtained. Prior Anticoagulants: The patient has taken no anticoagulant or antiplatelet agents. ASA Grade Assessment: Per anesthesia. After reviewing the risks and benefits, the patient was deemed in satisfactory condition to undergo the procedure. After I obtained informed consent, the scope was passed under direct vision. Throughout the procedure, the patient's blood pressure, pulse, and oxygen saturations were monitored continuously. The Colonoscope was introduced through the anus and advanced to the cecum, identified by appendiceal orifice and ileocecal valve. The colonoscopy was technically difficult and complex due to significant looping and a tortuous colon. Successful completion of the procedure was aided by applying abdominal pressure. The patient tolerated the procedure well. The quality of the bowel preparation was good. Scope In: 7:46:25 AM Scope Withdrawal Time 0 hours 9 minutes 56 seconds Scope Out: 8:26:37 AM Total Procedure Duration Time 0 hours 40 minutes 12 seconds Findings: Hemorrhoids were found on perianal exam. Non-bleeding internal hemorrhoids were found during retroflexion. The hemorrhoids were Grade I (internal hemorrhoids that do not prolapse). Two sessile polyps were found in the rectum. The polyps were less than 5 mm in size. These polyps were removed with a cold biopsy forceps. Resection and retrieval were complete. Multiple small-mouthed diverticula were found in the sigmoid colon and descending colon. The exam was otherwise without abnormality. Impression: - Hemorrhoids found on perianal exam. - Non-bleeding internal hemorrhoids. - Two less than 5 mm polyps in the rectum, removed with a cold biopsy forceps. Resected and retrieved. - Diverticulosis in the sigmoid colon and in the descending colon. - The examination was otherwise normal. Recommendation: - Discharge patient to home. - Resume previous diet. - Continue present medications. - Await pathology results. - Repeat colonoscopy in 5-10 years for surveillance based on pathology results. Procedure Code(s): --- Professional --- 73227, Colonoscopy, flexible; with biopsy, single or multiple Diagnosis Code(s): --- Professional --- K64.0, First degree hemorrhoids D12.8, Benign neoplasm of rectum R19.5, Other fecal abnormalities K57.30, Diverticulosis of large intestine without perforation or abscess without bleeding CPT copyright 2021 [employer] [place] [employer]. All rights reserved. The codes documented in this report are preliminary and upon abstract checker review may be revised to meet current compliance requirements. MD Elizabeth Carter MD 01/15/2024 8:32:52 AM This report has been signed electronically. Number of Addenda: 0 Note Initiated On: 01/15/2024 7:39 AM
--- NOTE | 2024-01-15 08:33 | OP.CCLET_ITS ---
01/15/2024 Phuc Mccormack [address] [place] [address] Re : Colonoscopy procedure for Kaye Dimas Dear Dr. Mccormack This procedure was performed on Monday, January 15, 2024. My impressions and recommendations are as follows: Impressions : - Hemorrhoids found on perianal exam. - Non-bleeding internal hemorrhoids. - Two less than 5 mm polyps in the rectum, removed with a cold biopsy forceps. Resected and retrieved. - Diverticulosis in the sigmoid colon and in the descending colon. - The examination was otherwise normal. Recommendations : - Discharge patient to home. - Resume previous diet. - Continue present medications. - Await pathology results. - Repeat colonoscopy in 5-10 years for surveillance based on pathology results. My findings are described in the full procedure note, which is enclosed. If I can be of further assistance, please feel free to contact me at Doctor phone number(s): , Work: . Sincerely, MD Elizabeth Carter MD 01/15/2024 8:32:52 AM This report has been signed electronically.
--- NOTE | 2024-01-15 08:37 | PCM.POST.ANE ---
Anesthesia: Postop Eval I Current Vital Signs Temperature: 97.8 F Pulse Rate: 67 Blood Pressure: 112/85 Respiratory Rate: 16 Pulse Ox: 95 Oxygen Delivery Method: Room Air Assessment Airway patent: Yes Spontaneous unlabored respirations: Yes Mental status: Awake nausea: No Vomiting: No Anesthesia Complication: No Fluid Hydration Crystalloid volume administer (ml): 800 Total IV fluid infused: 800 Progress Note Anesthesia document: Postop Eval 1 completed: Yes
--- NOTE | 2024-01-15 08:46 | PCM.POSTANE2 ---
Anesthesia Postop Eval I Sum Postop Eval Completion status Anesthesia document: Postop Eval 1 completed: Yes Anesthesia Postop Eval I Summary Anesthesia Postop Eval I Summary: Anesthesia Postop Eval I: Assessment Summary Airway patent Yes 01/15/24 08:38 [email or web address] Spontaneous unlabored Yes 01/15/24 08:38 [email or web address] respirations Mental status Awake 01/15/24 08:38 [email or web address] nausea No 01/15/24 08:38 [email or web address] Vomiting No 01/15/24 08:38 [email or web address] Anesthesia Postop Eval I: Fluid Summary Crystalloid volume administer 800 01/15/24 08:38 [email or web address] (ml) Colloids volume administered ( ml) Blood Product volume administered (ml) Total IV fluid infused 800 01/15/24 08:38 [email or web address] Anesthesia Postop Eval I: Summary Notes Anesthesia Complication No 01/15/24 08:38 [email or web address] Anesthesia Complication Comment: Post-operative progress note Anesthesia: Postop Eval II Evaluation Mental status: Awake Pain Level: 3 nausea: No Vomiting: No
== END 2024-01-15 09:18 | disposition home or self-care (01) ==
LOC: EN 06:10 → AC 06:11
PROVIDERS: PCP Family Medicine; Referring Provider Family Medicine; Visit Provider Surgery
PROC: 0DJD8ZZ Inspection of Lower Intestinal Tract, Via Natural or Artificial Opening Endoscopic (ICD-10-PCS; CPT 45378; principal; 2024-01-15 07:25)
DX: R19.5 Other fecal abnormalities (principal); K62.1 Rectal polyp; Z87.891 Personal history of nicotine dependence; K64.0 First degree hemorrhoids; Z80.0 Family history of malignant neoplasm of digestive organs; Z96.659 Presence of unspecified artificial knee joint; Q43.8 Other specified congenital malformations of intestine; K64.4 Residual hemorrhoidal skin tags
CPT/HCPCS: 45380; 88305; J7120; J2405